=== PATIENT | female | born 1960 | race Caucasian/White ===

== ENCOUNTER 2017-06-15 04:45 | Emergency (ER) | payer BC ==
[~2017-06-15] VITALS: Ht 162.6 cm; Wt 79.8 kg
[~2017-06-15 04:45] MED LIST: BENADRYL25 MG PO; IRON325 M1 PO
[2017-06-15 05:48] LABS: HEMATOCRIT 38.5 % (36.0-46.0); MCH 29.4 PG (29.0-34.0); MCHC 32.7 G/DL (30.0-36.0); MEAN PLAT.VOLUME 8.9 uM^3 (9.5-12.4); PLATELET COUNT 257 K/uL (156-360); RBC DIS.WIDTH-CV 12.4 % (11.8-14.6); RBC DIS.WIDTH-SD 40.9 % (39-53); RED BLOOD COUNT 4.28 M/uL (3.80-5.20); WHITE BLOOD COUNT 6.9 K/uL (4.1-10.2)
[2017-06-15 05:55] LABS: D-DIMER ELISA < 150.00 ng/mLDDU (<230)
[2017-06-15 06:00] LABS: CHLORIDE 107 mEq/L (99-109); POTASSIUM 3.8 mEq/L (3.7-5.4); SODIUM 139 mEq/L (136-147)
[2017-06-15 06:02] LABS: GLUCOSE 105 mg/dL (70-99)
[2017-06-15 06:04] LABS: ANION GAP 10 MEQ/L (2-14); TOTAL BILIRUBIN 0.6 mg/dL (0.0-1.0)
[2017-06-15 06:06] LABS: ALKALINE PHOSPHATASE 37 IU/L (3-129); GFR ESTIMATE (CALCULATED) > 59 mL/min/
[2017-06-15 06:07] LABS: UREA NITROGEN (BUN) 8 mg/dL (9-23)
[2017-06-15 06:09] LABS: LIPASE 33 U/L (1.0-51.0); TROP-I INTERPRETATION NEGATIVE; TROPONIN-I < 0.01 ng/mL (0.0-0.30)
[2017-06-15] MEDS ORDERED: LORCET 5-325 M1 EACH PO (06:34)
[2017-06-15] MEDS ORDERED: ONDANSETRON4 MG/5 ML PO (06:34)
[2017-06-15] MEDS ORDERED: CIPRO500 MG PO (06:34)
[2017-06-15] MEDS ORDERED: ZOFRAN4 MG PO (10:57)
[2017-06-15 11:07] VITALS: BP 140/78
== END 2017-06-15 11:08 | disposition home or self-care (01) ==
LOC: EME 04:45
PROVIDERS: Emergency Medicine
DX: R91.8 Other nonspecific abnormal finding of lung field (principal); K80.20 Calculus of gallbladder without cholecystitis without obstruction; K44.9 Diaphragmatic hernia without obstruction or gangrene; R19.7 Diarrhea, unspecified; R03.0 Elevated blood-pressure reading, without diagnosis of hypertension
CPT/HCPCS: 71020; 71275; 74177; 76705; 80053; 83690; 84484; 85027; 85379; 93005; 99281; 99285; J0744; J2270; J2405; J7030

== ENCOUNTER 2017-06-19 13:53 | Day surgery (SDC) | payer BC ==
[~2017-06-19] VITALS: Ht 160 cm; Wt 79.4 kg
[~2017-06-19 13:53] MED LIST changes: +CIPRO500 MG PO; +LORCET 5-325 M1 EACH PO; +ONDANSETRON4 MG/5 ML PO; +ZOFRAN4 MG PO
[2017-06-19 14:48] VITALS: BP 187/91
[2017-06-19 15:04] LABS: ADD MIUA? YES; BILIRUBIN NEGATIVE; BLOOD SMALL; COLOR YELLOW ((YELLOW)); GLUCOSE (STRIP) NEGATIVE; KETONES 20; LEUKOCYTES TRACE; NITRITE NEGATIVE; PROTEIN (STRIP) NEGATIVE; SPECIFIC GRAVITY 1.009 (1.000-1.030); UROBILINOGEN 0.2 MG/DL (0.2-1.0)
[2017-06-19 15:34] LABS: RED BLOOD CELLS RARE /HPF (0-5)
[2017-06-19 15:35] LABS: BACTERIA 2+ /HPF; EPITHELIAL CELLS 1+ /HPF; MUCUS NONE SEEN /LPF
[2017-06-19 15:36] LABS: CASTS NONE SEEN /LPF; CRYSTALS NONE SEEN
[2017-07-03] MEDS ORDERED: NORCO 5/3251 TABLET PO (13:07)
== END 2017-06-19 15:30 | disposition home or self-care (01) ==
LOC: SDC 13:53
PROVIDERS: Surgery
DX: Z53.09 Procedure and treatment not carried out because of other contraindication (principal)
CPT/HCPCS: 81003; S0030

== ENCOUNTER → 2017-07-03 | Day surgery (SDC) | payer BC, OTHER ==
[~2017-07-03] VITALS: Ht 160 cm; Wt 77.0 kg
[~2017-07-03] MED LIST changes: +NORCO 5/3251 TABLET PO
[2017-07-03 10:19] VITALS: BP 165/78
[2017-07-03 15:03] VITALS: BP 135/67
== END | disposition home or self-care (01) ==
LOC: SDC 09:44
PROC: 0FT44ZZ Resection of Gallbladder, Percutaneous Endoscopic Approach (ICD-10-PCS; principal; 2017-07-03)
DX: K80.10 Calculus of gallbladder with chronic cholecystitis without obstruction (principal); I10 Essential (primary) hypertension; I34.1 Nonrheumatic mitral (valve) prolapse; M41.9 Scoliosis, unspecified; E66.9 Obesity, unspecified; Z68.31 Body mass index [BMI] 31.0-31.9, adult; Z80.0 Family history of malignant neoplasm of digestive organs; Z88.1 Allergy status to other antibiotic agents; Z83.49 Family history of other endocrine, nutritional and metabolic diseases; Z82.49 Family history of ischemic heart disease and other diseases of the circulatory system
CPT/HCPCS: 88304; J0330; J1100; J1170; J1580; J1885; J2250; J2405; J2710; J3010; J7050; S0030